=== PATIENT | male | born 2000 | race Two or more races ===

== ENCOUNTER 2021-03-02 12:55 | Emergency (ER) | payer SELFPAY ==
[~2021-03-02] VITALS: Ht 172.7 cm; Wt 82.0 kg
--- NOTE | 2021-03-02 13:04 | NUR ---
ERMD AT BEDSIDE FOR EVALUATION.
--- NOTE | 2021-03-02 13:05 | NUR ---
PATIENT BIB EMS WITH CHIEF C/O MIDLINE LOWER BACK PAIN. PER EMS PATIENT FELL ABOUT 4-6 FEET OFF LADDER WHILE PAINTING, LANDED IN A SITTING POSITION. DENIES HITTING HEAD OR LOC. GIVEN 100 MCG FENTANYL, 20 GAUGE IV LEFT AC STARTED EN ROUTE, VSS, NO OTHER INTERVENTIONS. CONNECTED TO MONITOR, VSS, CALL LIGHT WITHIN REACH.
[2021-03-02] MEDS ORDERED: KETOROLAC 30 MG/1 ML ONE (13:17)
[2021-03-02] MEDS ORDERED: KETOROLAC 30 MG/1 ML IVPush ONE (13:30)
--- NOTE | 2021-03-02 13:32 | NUR ---
PATIENT TO IMAGING.
--- NOTE | 2021-03-02 14:36 | NUR ---
ERMD AT BEDSIDE TO DISCUSS POC.
[2021-03-02] MEDS ORDERED: ONDANSETRON 2MG/ML, 2ML ONE (14:57)
[2021-03-02] MEDS ORDERED: HYDROmorphone 1 MG/ML, 1ML INJ ONE (14:57)
[2021-03-02] MEDS ORDERED: ONDANSETRON 2MG/ML, 2ML IVPush ONE (15:00)
[2021-03-02] MEDS ORDERED: HYDROmorphone 1 MG/ML, 1ML INJ IV ONE (15:00)
--- NOTE | 2021-03-02 15:06 | NUR ---
PATIENT MEDICATED PER eMAR, CONNECTED TO MONITOR, VSS, CALL LIGHT WITHIN REACH. FAMILY AT BEDSIDE. PATIENT UP FOR RECHECK.
--- NOTE | 2021-03-02 15:26 | NUR ---
MD AT BEDSIDE WITH ULTRASOUND COMPLETING FAST EXAM
--- NOTE | 2021-03-02 16:24 | NUR ---
PER MD AWAITING PT TO BE REGISTERED SO HE CAN BE PRESCRIBED PAIN MEDICATION. REGISTRATION NOW AT BEDSIDE. PT VISITING WITH FAMILY, NO DISTRESS.
[2021-03-02 16:32] VITALS: BP 128/63
== END 2021-03-02 16:48 | disposition home or self-care (01) ==
LOC: ED 16:23
DX: S39.012A Strain of muscle, fascia and tendon of lower back, initial encounter (principal); S30.0XXA Contusion of lower back and pelvis, initial encounter; W18.30XA Fall on same level, unspecified, initial encounter; Y93.89 Activity, other specified; Y92.89 Other specified places as the place of occurrence of the external cause; Y99.8 Other external cause status
CPT/HCPCS: 72110; 96374; 96375; 99284; J1170; J1885; J2405